=== PATIENT | male | born 1945 | race Caucasian/White ===

== ENCOUNTER 2017-10-11 01:32 | Emergency (ER) | payer OTHER ==
[2017-10-11] MEDS ORDERED: KETOROLAC 15 MG/1 ML SDV IM ONE (02:02)
--- NOTE | 2017-10-11 04:40 | EDPHY ---
H & P Stated Complaint: right hip and thigh pain 1 day, took flexeril no help Time Seen by Provider: 10/11/17 01:44 HPI/ROS: Chief Complaint: Back pain, leg pain HPI: 72-year-old male with a history of degenerative disc disease is presenting with pain in his right back going down the back of his right leg. Patient arrived here after a plane flight in sitting on the tarmac for an hour. He did take some ibuprofen and some Flexeril without significant relief. No numbness or weakness. He is ambulating with a limp. No fevers or chills. No difficulty urinating or having a bowel movement. He is unable to get comfortable and has pain with movement. No falls or other injuries. ROS: 10 point Review of Systems is negative except as noted in the HPI. Social History: No smoking, no alcohol, no recreational drug use Family History: non-contributory Physical Exam: Gen: Awake, Alert, No Distress HEENT: Nose: no rhinorrhea Eyes: PERRLA, EOMI Mouth: Moist mucosa Neck: Supple, no JVD Chest: nontender, lungs clear to auscultation Heart: S1, S2 normal, no murmur Abd: Soft, non-tender, no guarding Back: no CVA tenderness, no midline tenderness moderate right paraspinal tenderness with mild right gluteal tenderness Ext: no edema, non-tender Skin: no rash Neuro: CN II-XII intact, Sensation grossly intact, Strength 5/5 in bilateral upper and lower extremities - Personal History Current Tetanus/Diphtheria Vaccine: Yes Current Tetanus Diphtheria and Acellular Pertussis (TDAP): Yes - Medical/Surgical History Hx Asthma: No Hx Chronic Respiratory Disease: No Hx Diabetes: No Hx Cardiac Disease: No Hx Renal Disease: No Hx Cirrhosis: No Hx Alcoholism: No Hx HIV/AIDS: No Hx Splenectomy or Spleen Trauma: No Other PMH: DEPRESSION, BLIND IN L EYE, FACE SURGERY WITH PLATES, BACK SURGERY - Social History Smoking Status: Never smoked Constitutional: Initial Vital Signs Temperature (C) 36.8 C 10/11/17 01:44 Heart Rate 69 10/11/17 01:44 Respiratory Rate 18 10/11/17 01:44 Blood Pressure 140/68 H 10/11/17 01:44 O2 Sat (%) 93 10/11/17 01:44 O2 Delivery Mode Nasal Cannula O2 (L/minute) 2 Allergies/Adverse Reactions: No Known Allergies Allergy (Unverified 10/11/17 01:46) Home Medications: Medication Instructions Recorded Atorvastatin Calcium 40 mg PO 10/11/17 Cyclobenzaprine [Flexeril 10 MG 10 mg PO 10/11/17 (*)] Escitalopram Oxalate [Lexapro] 10 mg PO 10/11/17 Hydrocodone/Acetaminophen 1 - 2 each PO Q4-6PRN PRN #10 10/11/17 [Hydrocodon-Acetaminophen 5-325] tablet Omeprazole 40 mg PO 10/11/17 buPROPion SR [Wellbutrin 100mg SR 100 mg PO BID 10/11/17 (*)] Medical Decision Making ED Course/Re-evaluation: Patient is improved with IV morphine and Toradol. He is not taking any ibuprofen for about 16 hr. He is completely neurologically intact. He has not have any red flags for acute cauda equina syndrome or epidural abscess. Will discharge with oral pain medicine, instructions to follow up with his doctor when he returns home. - Data Points Medications Given: Discontinued Medications Ketorolac Tromethamine (Toradol) 30 mg IM EDNOW ONE Stop: 10/11/17 02:03 Last Admin: 10/11/17 02:11 Dose: 30 mg Morphine Sulfate (Morphine) 4 mg IVP EDNOW ONE Stop: 10/11/17 02:41 Last Admin: 10/11/17 02:43 Dose: 4 mg Departure - Departure Disposition: Home, Routine, Self-Care Clinical Impression: Sciatica Condition: Good Instructions: Sciatica (ED), Lumbar Radiculopathy (ED), Lower Back Exercises ( ED) Additional Instructions: You may take hydrocodone, 1-2 tablets every 4-6 hours as needed for pain. Continue taking ibuprofen, 600 mg 3 times a day.. Follow up with primary care physician will you return home for further evaluation. Return to the emergency department for increasing pain, numbness, weakness, difficulty urinating, fevers, chills, or any other concerns. Referrals: JOSAFAT GASTELUM [Other] - As per Instructions Prescriptions: Hydrocodone/Acetaminophen [Hydrocodon-Acetaminophen 5-325] 1 - 2 each PO Q4- 6PRN PRN #10 tablet PRN Reason: Pain, Severe
[2017-10-11] MEDS ORDERED: HYDROCOD/APAP 5/325 PREPACK#6 BTL TAKEHOME ONE (05:06)
[2017-10-11 05:23] VITALS: BP 122/64
== END 2017-10-11 05:22 | disposition home or self-care (01) ==
DX: M54.31 Sciatica, right side (principal)
CPT/HCPCS: 73502; 96372; 96374; 99284; J1885; J2270

== ENCOUNTER 2017-10-13 15:34 | Inpatient (IN) | payer OTHER ==
--- NOTE | 2017-10-13 16:03 | EDPHY ---
H & P Stated Complaint: pain in right leg and back, here 2 days ago, not any better Time Seen by Provider: 10/13/17 16:02 - Medical/Surgical History Hx Asthma: No Hx Chronic Respiratory Disease: No Hx Diabetes: No Hx Cardiac Disease: No Hx Renal Disease: No Hx Cirrhosis: No Hx Alcoholism: No Hx HIV/AIDS: No Hx Splenectomy or Spleen Trauma: No Other PMH: DEPRESSION, BLIND IN L EYE, FACE SURGERY WITH PLATES, BACK SURGERY - Social History Smoking Status: Never smoked Constitutional: Initial Vital Signs Temperature (C) 36.7 C 10/13/17 15:36 Heart Rate 64 10/13/17 15:36 Respiratory Rate 18 10/13/17 15:36 Blood Pressure 174/86 H 10/13/17 15:36 O2 Sat (%) 91 L 10/13/17 15:36 O2 Delivery Mode Room Air Allergies/Adverse Reactions: No Known Allergies Allergy (Verified 10/13/17 15:36) Home Medications: Medication Instructions Recorded Atorvastatin Calcium 40 mg PO 10/11/17 Cyclobenzaprine [Flexeril 10 MG 10 mg PO 10/11/17 (*)] Escitalopram Oxalate [Lexapro] 10 mg PO 10/11/17 Hydrocodone/Acetaminophen 1 - 2 each PO Q4-6PRN PRN #10 10/11/17 [Hydrocodon-Acetaminophen 5-325] tablet Omeprazole 40 mg PO 10/11/17 buPROPion SR [Wellbutrin 100mg SR 100 mg PO BID 10/11/17 (*)] Medical Decision Making - Diagnostics Imaging Results: Imaging Impressions Lumbar Spine MRI 10/13/17 16:14 Impression: Multilevel degenerative disk and degenerative joint disease lumbar spine. The levels of more significance are at L3-L4 with severe right neural foraminal narrowing and moderate right lateral recess narrowing, L4-L5 level with severe left neural foraminal narrowing and severe central spinal canal narrowing, and L5-S1 level with severe bilateral neural foraminal narrowing. Results called and discussed with Javire Dawson M.D., on October 13, 2017 at 1804. E:JAIME/marianela Imaging: Discussed imaging studies w/ bingo caller Radiologist, I viewed and interpreted images myself ED Course/Re-evaluation: CHIEF COMPLAINT: Back and right leg pain HISTORY OF PRESENT ILLNESS: The patient is a 72 y/o male with a history of L5 disc clean up complaining of worsening back and right leg pain. He flew into the state for his son's about a week ago. The flight got delayed on the tarmac, prompting him to sit for about 13 hours. The next morning, he woke up with cramping and pain in his right leg and back. He was seen here on 10/11 for the cramps in the legs. Work-up was not indicative of a cause of pain and he was discharge with hydrocodone. Since then, his pain has continued to worsen, making it difficult to walk. He reports associated weakness in the right leg. He denies any other associated symptoms. He reports it is similar to his symptoms prior to L5 disc clean up surgery. REVIEW OF SYSTEMS: A 10 point review of systems was performed and is negative with the exception of the elements mentioned in the history of present illness. PHYSICAL EXAM: HR, BP, O2 Sat, RR. Temp noted General Appearance: Alert, well hydrated, appropriate, and non-toxic appearing. Head: Atraumatic without scalp tenderness or obvious injury Eyes: Pupils equal, round, reactive to light and accommodation, EOMI, no trauma , no injection. Ears: Clear bilaterally, no perforation, normal landmarks Nose: Atraumatic, no rhinorrhea, clear. Throat: There is no erythema or exudates, no lesions, normal tonsils, mucus membranes moist. Neck: Supple, nontender, no lymphadenopathy. Respiratory: No retractions, no distress, no wheezes, and no accessory muscle use. Lungs are clear to auscultation bilaterally. Cardiovascular: Regular rate and rhythm, no murmurs, rubs, or gallops. Bilateral carotid, radial, dorsalis pedis, and posterior tibial pulses intact. Good capillary refill all extremities. Gastrointestinal: Abdomen is soft, nontender, non-distended, no masses, no rebound, no guarding, no peritoneal signs. Musculoskeletal: Normal active ROM of all extremities, atraumatic. Neurological: Alert, appropriate, and interactive. Beats of clonus with dorsiflexion of right foot. Weakness with flexion of right thigh. Reflexes normal in right leg Skin: No rashes, good turgor, no nodules on palpation. Past medical history: Depression, blind in left eye Past surgical history: L5 disc cleanup, facial surgery with plate placement Family history: Non-contributory Social history: From [place], here for son's , at bedside, retired DIAGNOSTICS/PROCEDURES/CRITICAL CARE TIME: Study: MRI of the: Spine Indication: Pain in back and right leg, prior spinal surgery, beats of clonus on exam Results: MRI scan of the body parts was obtained. The results of the study are right side stenosis at L3 L4, left side stenosis at L4 L5 and bilateral stenosis at L5 S1 The study was read by the radiologist, Dr. Solorzano. DIFFERENTIAL DIAGNOSIS: The differential diagnosis for this patient's condition included but was not limited to disc herniation, fracture, and sciatica. MEDICAL DECISION MAKING: The patient presents with back and right leg pain. On exam, he has beats of clonus with dorsiflexion and weakness with thigh flexion. Plan for MRI with and without contrast due to prior surgery. Creatinine check with iSTAT. 6:00 PM - I reassessed this patient and found his condition improved. I informed him of the results of his workup. He would like to find a way to manage pain until he can return to [place]. He requests admission as his pain has made him unable to sleep for the past few days. 6:20 PM - I spoke with Dr. Mancera, neurosurgery, regarding this patient. He agrees to consult and agrees to the plan to admit for pain management. Dr. Bowie will be the admitting physician. - Data Points Laboratory Results: Laboratory Results 10/13/17 16:30 18 10/13/17 17:33 16:30 Sodium 139 mEq/L mEq/L (135-145) Potassium 4.2 mEq/L mEq/L (3.3-5.0) Chloride 107 mEq/L mEq/L (97-110) Carbon Dioxide 28 mEq/l mEq/l (22-31) Anion Gap 4 mEq/L L mEq/L (8-16) BUN 15 mg/dL mg/dL (7-23) Creatinine 0.9 mg/dL mg/dL (0.7-1.3) POC Creatinine 0.6 mg/dL L mg/dL (0.7-1.3) Estimated GFR > 60 Glucose 92 mg/dL mg/dL (70-100) Calcium 9.4 mg/dL mg/dL (8.5-10.4) Total Bilirubin 0.7 mg/dL mg/dL (0.1-1.4) AST 27 IU/L IU/L (17-59) ALT 36 IU/L IU/L (21-72) Alkaline Phosphatase 78 IU/L IU/L (38-126) Total Protein 6.6 g/dL g/dL (6.3-8.2) Albumin 3.9 g/dL g/dL (3.5-5.0) Medications Given: Discontinued Medications Dexamethasone (Decadron Injection) 10 mg IVP EDNOW ONE Stop: 10/13/17 18:15 Last Admin: 10/13/17 18:18 Dose: 10 mg Hydromorphone HCl (Dilaudid) 1 mg IVP EDNOW ONE Stop: 10/13/17 16:16 Last Admin: 10/13/17 16:43 Dose: 1 mg Hydromorphone HCl (Dilaudid) 1 mg IVP EDNOW ONE Stop: 10/13/17 16:55 Last Admin: 10/13/17 17:00 Dose: 1 mg Ketorolac Tromethamine (Toradol) 30 mg IVP EDNOW ONE Stop: 10/13/17 16:54 Last Admin: 10/13/17 17:00 Dose: 30 mg Point of Care Test Results: Chemistry 10/13/17 17:33 POC Creatinine 0.6 mg/dL L mg/dL (0.7-1.3) Departure - Departure Disposition: [facility] Inpatient Acute Clinical Impression: Inability to sleep, Lumbar disc herniation Radiculopathy Qualifiers: Spinal region: lumbar Qualified Code(s): M54.16 - Radiculopathy, lumbar region Condition: Fair Report Scribed for: Javier Dawson Report Scribed by: Sharifa Loyd Date of Report: 10/13/17 Time of Report: 17:54
[2017-10-13] MEDS ORDERED: HYDROmorphONE/DILAUDID 2 MG/ML INJ IVP ONE (16:15)
[2017-10-13] MEDS ORDERED: GADOBUTROL 10 ML VIAL IVP ONE (16:18)
[2017-10-13] MEDS ORDERED: KETOROLAC 30 MG/1 ML SDV IVP ONE (16:53)
[2017-10-13] MEDS ORDERED: KETOROLAC 30 MG/1 ML SDV ONE (16:54)
[2017-10-13] MEDS ORDERED: HYDROmorphONE/DILAUDID 1 MG/ML INJ IVP ONE ×2 (16:54→19:07)
[2017-10-13] MEDS ORDERED: HYDROmorphONE/DILAUDID 1 MG/ML INJ ONE ×2 (16:54→19:08)
[2017-10-13] MEDS ORDERED: DEXAMETHASONE 10 MG/ML VIAL IVP ONE (18:14)
[2017-10-13] MEDS ORDERED: ONDANSETRON 4 MG/2 ML VIAL IVP PRN (18:54)
[2017-10-13] MEDS ORDERED: ONDANSETRON DISINTEGRATING 4 MG TAB PO PRN (18:54)
[2017-10-13] MEDS ORDERED: LACTULOSE 20 GM/30 ML UDCUP PO PRN (19:26)
[2017-10-13] MEDS ORDERED: POLYETHYLENE GLYCOL 3350 17 GM PKT PO PRN (19:26)
[2017-10-13] MEDS ORDERED: MAGNESIUM HYDROXIDE 30 ML UDCUP PO PRN (19:26)
[2017-10-13] MEDS ORDERED: BISACODYL 10 MG SUPP PR PRN (19:26)
[2017-10-13] MEDS: HYDROmorphONE/DILAUDID 2 MG TAB PO PRN (20:54)
[2017-10-13] MEDS: HYDROmorphONE/DILAUDID 1 MG/ML INJ IVP PRN ×2 (20:54→22:26)
[2017-10-13] MEDS: SENNOSIDES/DOCUSATE SODIUM TAB PO SCH (20:55)
[2017-10-13] MEDS: GABAPENTIN 300 MG CAP PO SCH (20:55)
--- NOTE | 2017-10-13 22:39 | PDGENHP ---
History and Physical - Chief Complaint Acute back pain - History of Present Illness Primary care provider: In [facility] HPI: 72-year-old male presenting with acute back pain located in the right posterior lateral buttock radiating distally, onset of symptoms 3 days prior and duration persistent and worsening thereafter. The symptoms began after the patient underwent an overnight flight from [facility] to [facility], then he participated in his son's , consumed a moderate amount of alcohol, and then awoke the following morning with severe pain. He did not experience any injury to the affected area. The pain is significantly exacerbated by attempting to ambulate, and on the day of presentation, the patient is unable to safely ambulate, with some associated subjective weakness in the right lower extremity. He denies any bowel or bladder incontinence or retention. He reports that the pain is not particularly alleviated by oral hydrocodone or ibuprofen. He reports that has been somewhat alleviated at rest after receiving steroids and Dilaudid. History Information - Allergies/Home Medication List Allergies/Adverse Reactions: No Known Allergies Allergy (Verified 10/13/17 15:36) Home Medications: Cyclobenzaprine [Flexeril 10 MG (*)] 10 mg PO TID PRN 10/11/17 [Last Taken 10/12] Omeprazole 40 mg PO DAILY 10/11/17 [Last Taken Unknown] Atorvastatin Calcium [Lipitor 20 mg (*)] 20 mg PO DAILY 10/13/17 [Last Taken Unknown] Citalopram Hydrobromide [Citalopram HBr] 40 mg PO DAILY 10/13/17 [Last Taken ] Ibuprofen [Motrin (*)] 600 mg PO TID 10/13/17 [Last Taken 10/12/17] buPROPion XL [Wellbutrin Xl] 450 mg PO DAILY 10/13/17 [Last Taken 10/13/17] I have personally reviewed and updated: family history, medical history, social history, surgical history - Past Medical History Additional medical history: Left eye and facial fracture approximately 2 years ago, pain responded to Lyrica and other pain medications. Degenerative disc disease with previous lumbar symptoms on the left, responsive to muscle relaxants, pain medication, neuropathic agent as well as surgery - Surgical History Additional surgical history: L5 surgery in March of 2016, nasal fracture surgery May of 2016 - Family History Additional family history: Father with myocardial infarction and CVA in his 60s- 70s - Social History Smoking Status: Never smoked Alcohol Use: Occasionally Drug Use: None Additional social history: Lives with his in [facility], patient is very physically active, engaging in significant biking exercise approximately 1 week ago and not experiencing any chest pain or shortness of breath symptoms Review of Systems Review of Systems: ROS: 10pt was reviewed & negative except for what was stated in HPI & below Neurological: Reports: weakness (Right lower extremity), other (Sciatic pain right lower extremity) Physical Exam Physical Exam: Temp Pulse Resp BP Pulse Ox 36.6 C 68 16 144/78 H 3 L 10/13/17 20:21 10/13/17 20:21 10/13/17 20:21 10/13/17 20:21 10/13/17 20:21 O2 (L/minute) 95 Constitutional: no apparent distress, appears nourished, uncomfortable, No not in pain (Intermittent right lower extremity) Eyes: PERRL, anicteric sclera, No EOMI (Right eye, left eye impaired) Ears, Nose, Mouth, Throat: moist mucous membranes, hearing normal, ears appear normal, no oral mucosal ulcers Cardiovascular: regular rate and rhythym, no murmur, rub, or gallop, No edema Respiratory: no respiratory distress, no rales or rhonchi, clear to auscultation Gastrointestinal: normoactive bowel sounds, soft, non-tender abdomen, No guarding, No distension Skin: warm, No abrasion (On right flank), No rash (On right hip) Musculoskeletal: other (Negative straight leg raise on the right with passive range of motion, significant sciatic pain with active range of motion above 45 degrees, very minimal tenderness to palpation along the posterior right trochanteric bursa, no tenderness in the inguinal area on the right, significant pain elicited with internal rotation of the right femur, no tenderness to palpation over the lumbar spine, pain in the right hip with active range of motion of the left femur) Neurologic: AAOx3, sensation intact bilaterally, No weakness Psychiatric: interacting appropriately, not anxious, not encephalopathic, thought process linear Lab Data & Imaging Review 10/13/17 16:30 Sodium 139 mEq/L (135-145) 10/13/17 16:30 Potassium 4.2 mEq/L (3.3-5.0) 10/13/17 16:30 Chloride 107 mEq/L (97-110) 10/13/17 16:30 Carbon Dioxide 28 mEq/l (22-31) 10/13/17 16:30 Anion Gap 4 mEq/L (8-16) L 10/13/17 16:30 BUN 15 mg/dL (7-23) 10/13/17 16:30 Creatinine 0.9 mg/dL (0.7-1.3) 10/13/17 16:30 POC Creatinine 0.6 mg/dL (0.7-1.3) L 10/13/17 17:33 Estimated GFR > 60 10/13/17 16:30 Glucose 92 mg/dL (70-100) 10/13/17 16:30 Calcium 9.4 mg/dL (8.5-10.4) 10/13/17 16:30 Total Bilirubin 0.7 mg/dL (0.1-1.4) 10/13/17 16:30 AST 27 IU/L (17-59) 10/13/17 16:30 ALT 36 IU/L (21-72) 10/13/17 16:30 Alkaline Phosphatase 78 IU/L (38-126) 10/13/17 16:30 Total Protein 6.6 g/dL (6.3-8.2) 10/13/17 16:30 Albumin 3.9 g/dL (3.5-5.0) 10/13/17 16:30 Visualized and Interpreted imaging results: Yes Interpretation: MRI of the lumbar spine demonstrating some degenerative disc disease as well as refer L3-L4 herniation and severe right foraminal stenosis Assessment & Plan Assessment: 72-year-old male presenting with severe back pain and right lower extremity radiculopathy Plan: 1. Radiculopathy. Acute, new problem this provider, further workup indicated. Severe, resulting in inability to safely ambulate as well as intractable pain , no evidence of spinal cord compromise, suspect that the patient's pain is secondary to severe right-sided neural foraminal stenosis at L3-L4 consistent with his exam findings -discussed with Dr. Javier Dawson in the emergency department, he reports to me that he has consulted with Dr. Mancera from Neurosurgery who has recommended steroid injection, and this has been ordered for tomorrow morning by Interventional Radiology -attempt pain control in the interim with IV and oral Dilaudid, as needed Robaxin, scheduled naproxen, scheduled gabapentin 300 mg at bedtime -hold on systemic steroids as the plan is to provide steroid injection which might provide him with better relief as he transitions back home -the patient and his are somewhat anxious about the steroid injection, as the patient did undergo a steroid injection in 2015 prior to his L5 back surgery , which initially alleviated his left-sided radicular symptoms but then they immediately reoccurred several days later and became intractable, resulting in surgery -per Dr. Mancera, it is still possible that the patient may require neurosurgery if steroid injection is ineffective -RCRI score of 0, conferring is 0.5% perioperative risk of cardiovascular morbidity and/or mortality, conferring a low cardiovascular risk for an intermediate Ortho/neurosurgery if needed -engage in physical therapy -bowel regimen -incentive spirometer 2. Obstructive sleep apnea. CPAP HS Diet. Regular, NPO in a.m. Prophylaxis. Hold pharm given potential procedure, SCDs Code. Full Disposition. Anticipated discharge is 10/14, pending interventional radiology steroid injection tomorrow and clinical improvement. If patient is unable on to safely ambulate and complete activities of daily living, he will be upgraded to inpatient admission status tomorrow for ongoing therapy assessments , diagnostic workup and intervention.
[2017-10-14] MEDS: HYDROmorphONE/DILAUDID 2 MG TAB PO PRN ×6 (00:04→23:37)
[2017-10-14] MEDS: D5W 1/2 NS 1,000 ML IV SCH ×2 (00:04→08:51)
[2017-10-14] MEDS: METHOCARBAMOL 500 MG TAB PO PRN ×4 (00:05→20:43)
[2017-10-14] MEDS: HYDROmorphONE/DILAUDID 1 MG/ML INJ IVP PRN ×2 (03:43→06:02)
[2017-10-14 05:00] LABS: INR 1.01 (0.83-1.16); PROTIME(PATIENT) 13.5 SEC (12.0-15.0)
[2017-10-14] MEDS: NAPROXEN SODIUM 220 MG TAB PO SCH ×2 (07:28→19:57)
[2017-10-14] MEDS: buPROPion XL 150 MG TAB PO SCH (08:32)
[2017-10-14] MEDS: PANTOPRAZOLE SODIUM 40 MG TAB PO SCH (08:32)
[2017-10-14] MEDS: CITALOPRAM 20 MG TAB PO SCH (08:32)
[2017-10-14] MEDS: ATORVASTATIN CALCIUM 20 MG TAB PO SCH (08:34)
[2017-10-14] MEDS: SENNOSIDES/DOCUSATE SODIUM TAB PO SCH ×2 (08:35→19:58)
--- NOTE | 2017-10-14 09:34 | ASMTCMCOM ---
CM Note CM Note Notes: Chart reviewed 72 year old male form [facility], admitted via ED with complaints of pain and inability to walk due to pain. Per diagnostics he suffers from radiculopathy and will undergo a steroid injection to attempt to obtain relief. Needs to be determined. CM to follow .Plan: TBD Date Signed: 10/14/2017 09:33 AM Electronically Signed By:Alyssa Espinosa RN
--- NOTE | 2017-10-14 10:34 | NEUSURGPN ---
Assessment/Plan: Assessment: 72 yr old M with terrible right leg pain, severe right L3-4 foraminal stenosis and left L4-5 foraminal stenosis Plan: Please see full dictated consult when available -Right L3-4 BETTE pending for this am -Patient hoping to discharge following BETTE with plans to fly back to [place] early this week -MRI lumbar reviewed with patient and at bedside. Shows severe right L3-4 foraminal stenosis and left L4-5 foraminal stenosis. Severe bilateral foraminal narrowing at L5-S1 -Patient does not have any weakness on exam in the bed, denies saddle anesthesia. -Ok to discharge following BETTE from our standpoint. He will follow up with his spine surgeon at home in [place]. He will take a copy of his MRI with him. -Recommend Medrol dose pack for travels if ok with Hospitalist Dr Mancera will be by to see the patient as well Please call neurosurgery with any questions/concerns Subjective: Right leg pain Objective: AxO x3 PERRLA 5/5 BUE, BLE throughout all muscle groups sensation intact to light touch BLE Neuro Check Frequency: per routine Urinary Catheter in Place: No - Physician Discussed Patient with Dr.: Mancera Neurosurgery Physical Exam - Vitals, I&O, Labs I and O 10/13/17 10/14/17 10/15/17 05:59 05:59 05:59 Intake Total 700 Output Total 700 Balance 0 Weight 86.18 kg Intake: IV Infused (ml) 700 D5w 1/2 Ns 1,000 ml @ 100 700 mls/hr IV CONT MARIA M Rx#: [id number] Output: Urine (ml) 700 Urinal 700 Other: Number of Voids Urinal 1 Vital Signs Temp Pulse Resp BP Pulse Ox 36.8 C 70 15 139/69 H 91 L 10/14/17 08:00 10/14/17 08:00 10/14/17 08:00 10/14/17 08:00 10/14/17 08:00 ICD10 Worksheet Patient Problems: Problems Problem Status Onset Inability to sleep Acute Lumbar disc herniation Acute Radiculopathy Acute
[2017-10-14] MEDS: ACETAMINOPHEN 325 MG TAB PO PRN ×2 (11:03→22:48)
--- NOTE | 2017-10-14 12:26 | GCON ---
[f rep st] CONSULTATION INPATIENT CONSULTATION. DATE OF CONSULTATION: 10/14/2017 CHIEF COMPLAINT: Right leg pain. HISTORY OF PRESENT ILLNESS: The patient is a 72-year-old gentleman who presented to the ER with terrible right leg pain. Patient has a history of an L5 microdiskectomy approximately 1-1/2 years ago. This patient is visiting from out of town and is here after the passing of his son. The patient describes his symptoms as pain in his right hip into his quad, down to his knee and occasionally into his hamstring. Patient notes that he has some right groin pain as well. He denies any weakness or saddle anesthesia or difficulties with his bowel or bladder. The patient has tried injections in the past and unfortunately, only had approximately 1 day of relief. The patient would like to get back home to [place] where he is able to follow up with his established spine surgeon. REVIEW OF SYSTEMS: A 10-point review of systems was performed and negative aside from what was mentioned in the HPI. ALLERGIES: No known drug allergies. HOME MEDICATIONS: Flexeril 10 mg three times daily as needed, Lipitor 20 mg p.o. daily, citalopram 40 mg p.o. daily, ibuprofen 600 mg p.o. three times daily as needed, Wellbutrin 450 mg p.o. daily. PAST MEDICAL HISTORY: Left eye and facial fracture approximately 2 years ago, degenerative disk disease. PAST SURGICAL HISTORY: L5 microdiskectomy in March 2016, nasal fracture surgery in May 2016. FAMILY HISTORY: Patient's father had an VT and a CVA in his 60s and 70s. SOCIAL HISTORY: The patient has never smoked cigarettes. He occasionally drinks alcohol socially. He denies any illicit drug use. The patient lives with his in [place], [place] and is very physically active, particularly in cycling. DIAGNOSTICS: Lab results: PT 13.5, INR 1.01. Sodium 139, potassium 4.2, BUN 15, creatinine 0.9, glucose is 92, AST 27, ALT 36. DIAGNOSTIC IMAGING: MRI of the lumbar spine performed without contrast demonstrates multilevel degenerative disk and degenerative joint disease of the lumbar spine. The levels that are more significant are at L3-4 with severe right neuroforaminal narrowing and moderate right lateral recess narrowing, L4- 5 with severe left neuroforaminal narrowing and severe central spinal canal narrowing, and L5-S1 level with severe bilateral neuroforaminal narrowing. PHYSICAL EXAMINATION: VITAL SIGNS: Blood pressure is 139/69, heart rate 70, respiratory rate 15, oxygen saturations 91% on 3 L nasal cannula, temperature is 36.8 degrees Celsius. HEENT: Head is normocephalic and atraumatic. Pupils equal, round, and reactive to light. EOMIs intact. Full visual irwin by confrontation. RESPIRATORY: Deferred. CARDIAC: Deferred. ABDOMEN: Deferred. GENITOURINARY: Deferred. RECTAL: Deferred. NEUROLOGIC: The patient is awake and alert, oriented to name, place, location, date, time and situation. Memory is intact to immediate past and current events. Speech: No aphasia or dysphonia. Cranial nerves 2-12 are grossly intact. MOTOR: Patient has 5/5 strength in all muscle groups in bilateral upper and lower extremities to include deltoids, biceps, triceps, brachioradialis, wrist flexion, extensors , manager ambulatory, intrinsic fingers, iliopsoas, quadriceps, hamstring, plantar flexion, dorsiflexion, EHL testing. Sensation grossly intact to light touch throughout all dermatomal distributions bilateral lower extremities. Negative straight- leg raise bilaterally. Negative SENAIT test bilaterally. Reflexes: Knee jerks are 1+ bilaterally. Toes are downgoing bilaterally. ASSESSMENT AND PLAN: Patient is a 72-year-old gentleman who is in town visiting from [place]. The patient presented to the emergency department with terrible right leg pain and has a history of L5 microdiskectomy approximately 1-1/2 years ago. MRI of the lumbar spine was performed, which shows severe foraminal stenosis on the right at L3-4 as well as moderate recess narrowing at L3-4. L4-5 has severe left foraminal narrowing and severe central spinal canal narrowing as well. L5-S1 with severe bilateral neuroforaminal narrowing. The patient would like to try and get back home to [place] where he can follow up with his already established spine surgeon. The patient does not have any weakness on his exam today and it is okay for him to be discharged from a neurosurgery standpoint once his pain is under control. The patient is scheduled to get an epidural steroid injection this morning on the right L3-4, which we agree with. We are hopeful that he is able to gain control of his pain and discharge later today. We recommend a Medrol Dosepak for his travels if okay with the hospitalist given the amount of IV steroids he has gotten in the recent past. Patient was seen by Dr Mancera as well. The patient was seen and examined in the hospital room by neurosurgical services on October 14, 2017, at 9:30 a.m. /[id number]/MODL MTDD
[2017-10-14] MEDS ORDERED: fentaNYL 100 MCG/2 ML INJ IVP PRN (15:33)
[2017-10-14] MEDS ORDERED: FLUMAZENIL 0.5 MG/5 ML MDV IVP PRN (15:33)
[2017-10-14] MEDS ORDERED: MEPERIDINE 25 MG/ML SYR IVP PRN (15:33)
[2017-10-14] MEDS ORDERED: NALOXONE HCL 0.4 MG/ML INJ IVP PRN (15:33)
[2017-10-14] MEDS ORDERED: MIDAZOLAM 2 MG/2 ML VIAL IVP PRN (15:33)
[2017-10-14] MEDS ORDERED: NS 1,000 ML IV SCH (15:45)
[2017-10-14] MEDS ORDERED: TRIAMCINOLONE ACETONIDE 200 MG/5 ML MDV IM ONE (15:54)
[2017-10-14] MEDS ORDERED: LIDOCAINE 1% 300 MG/30 ML SDV ONE (15:54)
[2017-10-14] MEDS ORDERED: IOPAMIDOL (ISOVUE-M 300) 15 ML VIAL ONE (15:55)
[2017-10-14] MEDS: GABAPENTIN 300 MG CAP PO SCH (19:53)
[2017-10-14] MEDS: LIDOCAINE 4%/MENTHOL 1% PATCH TD SCH (20:45)
[2017-10-14] MEDS ORDERED: GABAPENTIN 300 MG CAP PO ONE (21:00)
[2017-10-14] MEDS ORDERED: DEXAMETHASONE 10 MG/ML VIAL IVP ONE (21:00)
[2017-10-14] MEDS: PATCH REMOVAL 1 EA PATCH TD SCH (23:49)
[2017-10-15] MEDS: HYDROmorphONE/DILAUDID 2 MG TAB PO PRN ×5 (03:23→21:16)
[2017-10-15] MEDS: METHOCARBAMOL 500 MG TAB PO PRN ×3 (06:43→22:10)
--- NOTE | 2017-10-15 08:15 | HOSPPROG ---
Hospitalist Progress Note Assessment/Plan: NOTE FOR 10/14/17 72-year-old male presenting with severe back pain and right lower extremity radiculopathy. D/W Radiology. Rivka encounter, chart reviewed. Plan: 1. Radiculopathy. -Severe, resulting in inability to safely ambulate as well as intractable pain, -no evidence of spinal cord compromise, -suspect that the patient's pain is secondary to severe right-sided neural foraminal stenosis at L3-L4 consistent with his exam findings - consulted with Neurosurgery who has recommended steroid injection, -steriod injection today with Interventional Radiology -attempt pain control in the interim with IV and oral Dilaudid, as needed Robaxin, scheduled naproxen, scheduled gabapentin 300 mg at bedtime -hold on systemic steroids as the plan is to provide steroid injection which might provide him with better relief as he transitions back home -the patient and his are somewhat anxious about the steroid injection, as the patient did undergo a steroid injection in 2015 prior to his L5 back surgery , which initially alleviated his left-sided radicular symptoms but then they immediately reoccurred several days later and became intractable, resulting in surgery -per Dr. Mancera, it is still possible that the patient may require neurosurgery if steroid injection is ineffective -RCRI score of 0, conferring is 0.5% perioperative risk of cardiovascular morbidity and/or mortality, conferring a low cardiovascular risk for an intermediate Ortho/neurosurgery if needed -engage in physical therapy -bowel regimen -incentive spirometer 2. Obstructive sleep apnea. CPAP HS Diet. Regular Prophylaxis. Hold pharm given potential procedure, SCDs Code. Full Disposition. possible DC after injection Subjective: severe pain. No relief. Unable to get out of bed. Objective: Vital Signs Temp Pulse Resp BP Pulse Ox 36.8 C 70 15 145/74 H 94 10/15/17 07:14 10/15/17 07:14 10/15/17 07:14 10/15/17 07:14 10/15/17 07:14 10/14/17 10/15/17 10/16/17 05:59 05:59 05:59 Intake Total 700 2100 Output Total 700 2100 600 Balance 0 0 -600 PT 13.5 SEC (12.0-15.0) 10/14/17 04:31 INR 1.01 (0.83-1.16) 07/01/18 04:31 - Physical Exam Constitutional: uncomfortable, No chronically ill appearing, No obese Eyes: PERRL, anicteric sclera, EOMI Ears, Nose, Mouth, Throat: moist mucous membranes, hearing normal, ears appear normal Cardiovascular: No JVD, No tachycardia, No edema Respiratory: no respiratory distress, no rales or rhonchi, reduced air movement Gastrointestinal: normoactive bowel sounds, No tenderness, No ascites Skin: warm, normal color, mottled Musculoskeletal: joint tenderness, pain with ROM, muscular tenderness, generalized weakness Neurologic: AAOx3 Psychiatric: interacting appropriately, not anxious, not encephalopathic, thought process linear ICD10 Worksheet Patient Problems: Problems Problem Status Onset Inability to sleep Acute Lumbar disc herniation Acute Radiculopathy Acute
[2017-10-15] MEDS: ATORVASTATIN CALCIUM 20 MG TAB PO SCH (08:57)
[2017-10-15] MEDS: GABAPENTIN 300 MG CAP PO SCH ×3 (08:57→21:16)
[2017-10-15] MEDS: NAPROXEN SODIUM 220 MG TAB PO SCH ×2 (08:57→21:14)
[2017-10-15] MEDS: buPROPion XL 150 MG TAB PO SCH (08:57)
[2017-10-15] MEDS: CITALOPRAM 20 MG TAB PO SCH (08:57)
[2017-10-15] MEDS: SENNOSIDES/DOCUSATE SODIUM TAB PO SCH ×2 (08:58→21:15)
[2017-10-15] MEDS: PANTOPRAZOLE SODIUM 40 MG TAB PO SCH (09:00)
[2017-10-15] MEDS: LIDOCAINE 4%/MENTHOL 1% PATCH TD SCH (10:02)
--- NOTE | 2017-10-15 11:03 | SOAPPROG ---
[facility] Progress Note Assessment/Plan: Assessment: 72 yo M with right L3/4 far lateral disc herniation Plan: pain partially improved with right L3/4 BETTE yesterday discussed with patient the options of continued conservative care or surgery It can take up to 7-10 days for steroid injection to fully work will watch for now, if he is not improving then we can consider a right L3/4 far lateral microdiscectomy. We would prefer to let the steroids work and have him return to [place]. please call with neuro changes discussed with Dr Mancera 10/15/17 10:54 Subjective: thigh pain better, still with pain in right groin. Objective: Vital Signs Temp Pulse Resp BP Pulse Ox 36.8 C 70 15 145/74 H 94 10/15/17 07:14 10/15/17 07:14 10/15/17 07:14 10/15/17 07:14 10/15/17 07:14 10/14/17 10/15/17 10/16/17 05:59 05:59 05:59 Intake Total 700 2100 Output Total 700 2100 600 Balance 0 0 -600 PT 13.5 SEC (12.0-15.0) 10/14/17 04:31 INR 1.01 (0.83-1.16) 10/14/17 04:31 AAO x4, +FC PERRL, EOMI ML x 4 + light touch ICD10 Worksheet Patient Problems: Problems Problem Status Onset Inability to sleep Acute Lumbar disc herniation Acute Radiculopathy Acute
--- NOTE | 2017-10-15 13:49 | HOSPPROG ---
Hospitalist Progress Note Assessment/Plan: NOTE FOR 10/14/17 72-year-old male presenting with severe back pain and right lower extremity radiculopathy. D/W Jamal Ho, neurosurgery Plan: 1. Radiculopathy. -Severe, resulting in inability to safely ambulate as well as intractable pain -no evidence of spinal cord compromise -suspect that the patient's pain is secondary to severe right-sided neural foraminal stenosis at L3-L4 consistent with his exam findings -steroid injection yesterday with Interventional Radiology -some relief -hold on systemic steroids as the plan is to provide steroid injection which might provide him with better relief as he transitions back home -per Dr. Mancera, it is still possible that the patient may require neurosurgery if steroid injection is ineffective -engage in physical therapy -bowel regimen -incentive spirometer 2. Obstructive sleep apnea. CPAP HS Diet. Regular Prophylaxis. Hold pharm given potential procedure, SCDs Code. Full Disposition. cont supportive care PT/OT wait to see response to injection return to [facility] when able Subjective: Up in chair. Still having significant pain. Better then yesterday. Unable to walk . Objective: Vital Signs Temp Pulse Resp BP Pulse Ox 36.7 C 68 16 139/73 H 91 L 10/15/17 11:09 10/15/17 11:09 10/15/17 11:09 10/15/17 11:10/15/17 11:10/14/17 10/15/17 10/16/17 05:59 05:59 05:59 Intake Total 700 2100 Output Total 700 2100 600 Balance 0 0 -600 PT 13.5 SEC (12.0-15.0) 10/14/17 04:31 INR 1.01 (0.83-1.16) 10/14/17 04:31 - Physical Exam Constitutional: no apparent distress, appears nourished, uncomfortable Eyes: PERRL, anicteric sclera, EOMI Ears, Nose, Mouth, Throat: moist mucous membranes, hearing normal, ears appear normal Cardiovascular: No JVD, No tachycardia, No edema Respiratory: no respiratory distress, no rales or rhonchi, reduced air movement Gastrointestinal: normoactive bowel sounds, No tenderness, No ascites Skin: warm, normal color, No mottled Musculoskeletal: joint tenderness, pain with ROM, muscular tenderness, abnormal gait, generalized weakness Neurologic: AAOx3 Psychiatric: not encephalopathic, thought process linear, anxious ICD10 Worksheet Patient Problems: Problems Problem Status Onset Inability to sleep Acute Lumbar disc herniation Acute Radiculopathy Acute
[2017-10-15] MEDS: ACETAMINOPHEN 325 MG TAB PO PRN (15:56)
[2017-10-15] MEDS ORDERED: oxyCODONE IR 5 MG TAB PO PRN (21:28)
[2017-10-15] MEDS ORDERED: METHOCARBAMOL 750 MG TAB PO PRN (21:28)
[2017-10-15] MEDS ORDERED: morphINE SR 15 MG TAB PO SCH (21:30)
[2017-10-15] MEDS: PATCH REMOVAL 1 EA PATCH TD SCH (22:11)
[2017-10-16] MEDS: HYDROmorphONE/DILAUDID 2 MG TAB PO PRN ×3 (01:23→11:03)
[2017-10-16] MEDS: METHOCARBAMOL 500 MG TAB PO PRN (03:41)
[2017-10-16] MEDS: ACETAMINOPHEN 325 MG TAB PO PRN ×2 (03:41→11:26)
[2017-10-16 07:34] VITALS: BP 141/89
--- NOTE | 2017-10-16 08:06 | NEUSURGPN ---
Assessment/Plan: Assessment: 72 yo M with right L3/4 far lateral disc herniation Plan: -pain partially improved with right L3/4 BETTE yesterday -discussed with patient the options again of continued conservative care or surgery -they are leaning towards flying to [place] and getting surgery there -It can take up to 7-10 days for steroid injection to fully work-pt and understand this and agree -will watch for now pending the patients final decision-I will check back in 1 hour to see if they want us to do surgery or if they want to fly back to [place]. I did offer surgery to them and they will ultimately make the final decision -pt understands and agrees -please call with neuro changes -discussed with Dr Mancera Subjective: Awake and alert. NAD. Eating/drinking and voiding. No f/c/n/v/d. No ramos/neck/ chest/abd or gu complaints. RLE pain is better, still complains of some right LE spasms-better with Valium Objective: AAO x4, +FC PERRL, EOMI ML x 4 + light touch Neuro Check Frequency: per routine Urinary Catheter in Place: No - Physician Discussed Patient with Dr.: Calderon Patient Seen by : Calderon Neurosurgery Physical Exam - Vitals, I&O, Labs I and O 10/15/17 10/16/17 10/17/17 05:59 05:59 05:59 Intake Total 2100 1000 Output Total 2100 1700 350 Balance 0 -700 -350 Intake: Oral (ml) 1000 1000 IV Infused (ml) 1100 D5w 1/2 Ns 1,000 ml @ 100 1100 mls/hr IV CONT MARIA M Rx#: [id number] Output: Urine (ml) 2100 1700 350 Urinal 2100 1700 350 Other: Number of Voids Urinal 1 1 Vital Signs Temp Pulse Resp BP Pulse Ox 36.4 C 57 L 14 141/89 H 92 10/16/17 07:30 10/16/17 07:30 10/16/17 07:30 10/16/17 07:30 10/16/17 07:30 ICD10 Worksheet Patient Problems: Problems Problem Status Onset Inability to sleep Acute Lumbar disc herniation Acute Radiculopathy Acute
[2017-10-16] MEDS: buPROPion XL 150 MG TAB PO SCH (09:08)
[2017-10-16] MEDS: NAPROXEN SODIUM 220 MG TAB PO SCH (09:09)
[2017-10-16] MEDS: ATORVASTATIN CALCIUM 20 MG TAB PO SCH (09:09)
[2017-10-16] MEDS: CITALOPRAM 20 MG TAB PO SCH (09:10)
[2017-10-16] MEDS: LIDOCAINE 4%/MENTHOL 1% PATCH TD SCH ×2 (09:10→11:05)
[2017-10-16] MEDS: PANTOPRAZOLE SODIUM 40 MG TAB PO SCH (09:10)
[2017-10-16] MEDS: GABAPENTIN 300 MG CAP PO SCH (09:10)
[2017-10-16] MEDS: SENNOSIDES/DOCUSATE SODIUM TAB PO SCH (09:11)
--- NOTE | 2017-10-16 09:28 | PDMN ---
Medical Necessity Medical necessity: Pt meets inpt criteria per MD order abd MCG M-63, Back Pain. Pt presents w/severe back pain and RLE radiculopathy resulting in inability to ambulate safely and requiring inpt pain management, steroid injection, PT/OT.
--- NOTE | 2017-10-16 12:57 | GDS ---
[f rep st] DISCHARGE SUMMARY DISCHARGE DIAGNOSES: 1. L3-4 lateral disk herniation. 2. Back pain. 3. Obstructive sleep apnea. CONSULTATIONS: Neurosurgery. STUDIES AND PROCEDURES DONE: 1. Epidural steroid injection. 2. MRI of the lumbar spine. PHYSICAL EXAM: GENERAL: The patient is alert. VITAL SIGNS: Afebrile at 36.4, pulse is 57, respira tory rate 14, blood pressure is 141/89. He is saturating 92% on room air. I have seen and evaluated the patient on the day of discharge. HOSPITAL COURSE: The patient is a 72-year-old male visiting from [place] who has felt acute onset of back pain. He was evaluated and diagnosed with: Right L3-4 lateral disk herniation. During this hospitalization, he received a consultation from [facility] rosurgery and epidural steroid injection was placed. The patient's pain is improved. He is able to ambulate and he will be discharged home to follow up in the outpatient setting in [place] where he [facility] resides. His plan is to take a plane today to fly home and have further care at home. There are no pending studies. DISCHARGE MEDICATIONS: Please refer to EMR form. The patient has been provided prescriptions at the time of disposition. I spent greater than 35 minutes in the care, coordination and management of the patient's discharge, given the complication that he is traveling by plane today. Again, followup will be in [place] where he normally resides. /[id number]/MODL
--- NOTE | 2017-10-16 14:42 | ASMTCMCOM ---
CM Note CM Note Notes: Pt medically stable for d/c, he will return to [place]. No CM d/c needs identified. Date Signed: 10/16/2017 02:42 PM Electronically Signed By:MICHAEL Braswell
== END 2017-10-16 11:28 | disposition home or self-care (01) | DRG 552 ==
LOC: F3N 19:55 → OBSVTOIN 10-15 15:17
PROVIDERS: ADMIT Internal Medicine; ATTEND Internal Medicine
DX: M51.26 Other intervertebral disc displacement, lumbar region (principal); G47.33 Obstructive sleep apnea (adult) (pediatric); M54.16 Radiculopathy, lumbar region
CPT/HCPCS: 82565-PO; 96374; 97116-GP; 97161-GP; 97165-GO; 97530-GO; A9585; G0378; G8987-GO-CI; G8987-GO-CK; G8988-GO-CI; G8989-GO-CI; J1100; J1170; J1885; J2250; J2310; J3010; J3301; Q9967